=== PATIENT | male | born 1995 | race African-American/Black ===

== ENCOUNTER 2022-12-04 08:42 | Outpatient (AMB) | payer OTHER, SELFPAY ==
[2022-12-04 08:45] VITALS: BP 110/70; PULSE 74; BMI 27.5
--- NOTE | 2022-12-04 08:45 | MHC.OFFVIS ---
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 He is a very active 27-year-old male with no significant past medical history. Patient exercises 6 days a week and runs on a regular basis. He denies any exertional symptoms. No symptoms of chest pain or shortness of breath. He denies any palpitations, lightheadedness, syncope. No prior cardiac history. Patient currently does not take any medications. 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 EKG was done which shows normal sinus rhythm normal EKG as a 1st EKG. Second EKG shows sinus arrhythmia [facility] Family History Father Diabetes Mother No problems noted. Social History Patient Tobacco Use Status: Former Tobacco user Review of Systems Const Denies chills, Denies fatigue, Denies fever(s), Denies frequent falls, Denies weakness, Denies weight gain and Denies weight loss ENT Denies dizziness Card Denies chest pain, Denies leg edema, Denies lightheadedness, Denies palpitations, Denies dyspnea, Denies dyspnea on exertion, Denies orthopnea and Denies other (loss of consciousness) Resp Denies cough, Denies dyspnea and Denies dyspnea on exertion GI Denies hematochezia and Denies change in stool character Musc Denies abnormal gait, Denies muscle weakness, Denies numbness, Denies radiating pain into limb and Denies tingling Neuro Denies abnormal gait, Denies dizziness, Denies frequent falls, Denies numbness, Denies tingling and Denies weakness Endo Denies fatigue and Denies palpitations Physical Exam Vital Signs: Last Vital Signs Pulse 74 12/04/22 08:45 BP 110/70 12/04/22 08:45 BMI result Body Mass Index 27.5 Const General: cooperative, comfortable, no acute distress, well developed, alert, awake and Physically active Nutritional Appearance: average body habitus and well nourished Orientation/consciousness: patient oriented x3 Limitations: no limitations HEENT Head: Yes normocephalic and Yes atraumatic Neck Neck: Yes trachea midline, Yes supple and Yes no JVD Resp Effort & Inspection: normal respiratory effort Auscultation: clear to auscultation bilaterally Cardio Jugular venous distension: no JVD Palpation: normal PMI Rate: regular rate Rhythm: regular rhythm Heart sounds: S1 normal heart sound present, S2 normal heart sound present, no click, no gallops, no murmurs and no rubs Peripheral pulses: Peripheral pulses 2+ throughout GI Auscultation: normal bowel sounds Skin General skin exam: no rashes or lesions noted Neuro General: patient oriented x3 and no focal motor deficits Extrem General: Yes no clubbing, cyanosis or edema Psych Appearance: grossly normal Assessment & Plan Assessment & Plan (1) Pre-employment examination: Code(s): Z02.1 - Encounter for pre-employment examination Plan: patient planning to be a police communications dispatcher and is in excellent shape. EKG does not show any significant abnormalities that are concerning at this point time. No further workup is needed at this point time. Patient is optimized from cardiac perspective to pursue training and seeking employment as a police communications dispatcher. Sinus arrhythmias not uncommon in patient with good cardio aerobic shape. Will sign of the case at this point time. Thank you for allowing me to partake in his care Coding Level of Care Code New Pt Level 3 (57838) Diagnoses Pre-employment examination Z02.1
== END 2022-12-04 09:32 | disposition home or self-care (01) ==
PROVIDERS: PCP Internal Medicine; Visit Provider Internal Medicine Cardiovascular Disease
DX: Z02.1 Encounter for pre-employment examination (principal)
CPT/HCPCS: 99203

== ENCOUNTER → 2022-12-04 08:42 | Outpatient (BNVA) | payer OTHER, SELFPAY | PROVIDERS: PCP Internal Medicine; Visit Provider Internal Medicine Cardiovascular Disease | DX: Z02.1 Encounter for pre-employment examination (principal); R94.31 Abnormal electrocardiogram [ECG] [EKG] | CPT/HCPCS: 99202 ==